=== PATIENT | female | born 1990 | race Two or more races ===

== ENCOUNTER 2018-04-19 11:03 | Emergency (ER) | payer SELFPAY ==
[~2018-04-19] VITALS: Ht 157.5 cm; Wt 56.1 kg
[2018-04-19] MEDS ORDERED: PROMETHAZINE 25 MG/ML, 1ML ONE (12:25)
[2018-04-19] MEDS ORDERED: FAMOTIDINE 20 MG/2 ML ONE (12:26)
[2018-04-19] MEDS ORDERED: MAALOX/HYOSCYAMINE/LIDOCAINE 45 ML BTL ONE (12:26)
[2018-04-19 12:27] LABS: MEAN CORPUSCULAR HGB CONC 34.6 g/dL (32.4-35.8); MEAN CORPUSCULAR VOLUME 95.3 fL (80-100); MEAN PLATELET VOLUME 7.8 fL (7.4-10.4); PLATELET COUNT 444 x10^3/uL (130-400); RED BLOOD COUNT 4.41 x10^6/uL (3.82-5.3); RED CELL DISTRIBUTION WIDTH 12.3 % (9.6-15.2)
[2018-04-19] MEDS ORDERED: SODIUM CHLORIDE FLUSH 10ML SYR IVF ONE (12:30)
[2018-04-19] MEDS ORDERED: SODIUM CHLORIDE 0.9% 1,000ML IVBOLUS ONE (12:30)
[2018-04-19] MEDS ORDERED: PROMETHAZINE 25 MG/ML, 1ML IM ONE (12:30)
[2018-04-19] MEDS ORDERED: MAALOX/HYOSCYAMINE/LIDOCAINE 45 ML BTL PO ONE (12:30)
[2018-04-19] MEDS ORDERED: FAMOTIDINE 20 MG/2 ML IVP ONE (12:30)
[2018-04-19 12:38] LABS: ALANINE AMINOTRANSFERASE 24 U/L (12-78); ALBUMIN 4.1 g/dL (3.4-5.0); ANION GAP 13 mmol/L (5-15); CALCIUM 9.2 mg/dL (8.5-10.1); CHLORIDE 109 mmol/L (98-107); CREATININE 0.89 mg/dL (0.55-1.02)
[2018-04-19 12:43] LABS: ALKALINE PHOSPHATASE 44 U/L (45-117); BILIRUBIN,TOTAL 1.2 mg/dL (0.2-1.0); TOTAL PROTEIN 8.2 g/dL (6.4-8.2)
[2018-04-19 12:50] LABS: MD SCAN
[2018-04-19 12:51] LABS: BASOPHILS # (AUTO) 0.02 x10^3/uL (0-0.1); BASOPHILS % (AUTO) 0 % (0-1); EOSINOPHILS % (AUTO) 0 % (1-7); LYMPHOCYTES # (AUTO) 0.55 x10^3/uL (1-3.4); LYMPHOCYTES % (AUTO) 3 % (22-44); MONOCYTES % (AUTO) 1 % (2-9); NEUTROPHILS # (AUTO) 20.23 x10^3/uL (1.8-6.8); NEUTROPHILS % (AUTO) 96 % (42-75)
[2018-04-19] MEDS ORDERED: MORPHINE SULFATE 4 MG/ML, 1ML ONE (13:18)
[2018-04-19] MEDS ORDERED: MORPHINE SULFATE 4 MG/ML, 1ML IVPush PRN (13:30)
[2018-04-19] MEDS ORDERED: OMNIPAQUE 350 MG/ML, 100ML BOTTLE ONE (14:19)
[2018-04-19 15:01] VITALS: BP 103/85
== END 2018-04-19 15:06 | disposition home or self-care (01) ==
LOC: ED 14:11
DX: N83.201 Unspecified ovarian cyst, right side (principal); D72.829 Elevated white blood cell count, unspecified; R11.2 Nausea with vomiting, unspecified; R19.7 Diarrhea, unspecified; Z79.899 Other long term (current) drug therapy
CPT/HCPCS: 36415; 74177; 76700; 80053; 80307; 83690; 84703; 85025; 96361; 96372; 96374; 96375; 99285; J2550; J7030; Q9967; S0028

== ENCOUNTER 2019-02-17 07:07 | Emergency (ER) | payer OTHER ==
[~2019-02-17] VITALS: Ht 160 cm; Wt 61.9 kg
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
[2019-02-17] MEDS ORDERED: DIPH,PERTUSS(ACELL),TET VAC/PF 0.5 ML IM-VACC ONE ×2 (08:00→08:01)
[2019-02-17] MEDS ORDERED: AMOXICILLIN/CLAV 875-125MG TABLET ONE (08:29)
[2019-02-17] MEDS ORDERED: AMOXICILLIN/CLAV 875-125MG TABLET PO ONE (08:30)
[2019-02-17 08:42] VITALS: BP 126/78
[2019-02-17] MEDS ORDERED: BACITRACIN ZINC OINT 500U/GM, 0.9 GM ONE (09:00)
== END 2019-02-17 09:33 | disposition home or self-care (01) ==
LOC: ED 09:19
DX: S60.571A Other superficial bite of hand of right hand, initial encounter (principal); L03.113 Cellulitis of right upper limb; W55.01XA Bitten by cat, initial encounter; Y93.89 Activity, other specified; Y92.099 Unspecified place in other non-institutional residence as the place of occurrence of the external cause; Y99.8 Other external cause status
CPT/HCPCS: 90471; 90715

== ENCOUNTER 2020-09-12 07:25 | Emergency (ER) | payer OTHER ==
[~2020-09-12] VITALS: Ht 160 cm; Wt 60.3 kg
[~2020-09-12 07:25] MED LIST: CITA20TA9 PO
[2020-09-12 07:29] VITALS: BP 124/75
--- NOTE | 2020-09-12 07:41 | NUR ---
Pt brought back from triage with chief complaint of left lbp/flank pain, reports hurts to take a deep breath. Pt denies n/v, cp, recent trauma.
[2020-09-12] MEDS ORDERED: KETOROLAC 30 MG/1 ML ONE (07:48)
[2020-09-12] MEDS ORDERED: CYCLOBENZAPRINE 10 MG TABLET ONE (07:49)
--- NOTE | 2020-09-12 07:57 | NUR ---
US at bedside.
[2020-09-12] MEDS ORDERED: CYCLOBENZAPRINE 10 MG TABLET PO ONE (08:00)
[2020-09-12] MEDS ORDERED: KETOROLAC 30 MG/1 ML IM ONE (08:00)
[2020-09-12 08:08] LABS: MICROSCOPIC AUTO
[2020-09-12 08:21] LABS: ALANINE AMINOTRANSFERASE 10 U/L (12-78); ALBUMIN 3.6 g/dL (3.4-5.0); ANION GAP 7 mmol/L (5-15); CALCIUM 8.8 mg/dL (8.5-10.1); CHLORIDE 110 mmol/L (98-107); CREATININE 0.89 mg/dL (0.55-1.02)
[2020-09-12 08:23] LABS: BASOPHILS % (AUTO) 1 % (0-1); EOSINOPHILS % (AUTO) 1 % (1-7); LYMPHOCYTES % (AUTO) 36 % (22-44); MEAN CORPUSCULAR HGB CONC 33.9 g/dL (32.4-35.8); MEAN PLATELET VOLUME 7.4 fL (7.4-10.4); MONOCYTES % (AUTO) 8 % (2-9); NEUTROPHILS % (AUTO) 55 % (42-75); PLATELET COUNT 383 x10^3/uL (130-400); RED BLOOD COUNT 4.02 x10^6/uL (3.82-5.3)
[2020-09-12 08:26] LABS: MD NO
[2020-09-12 08:29] LABS: ALKALINE PHOSPHATASE 47 U/L (45-117); BILIRUBIN,TOTAL 0.2 mg/dL (0.2-1.0); TOTAL PROTEIN 7.3 g/dL (6.4-8.2)
--- NOTE | 2020-09-12 08:46 | NUR ---
Discharge instructions reviewed.
== END 2020-09-12 08:58 | disposition home or self-care (01) ==
LOC: ED 08:10
DX: S39.012A Strain of muscle, fascia and tendon of lower back, initial encounter (principal); R10.9 Unspecified abdominal pain; Z88.2 Allergy status to sulfonamides; X58.XXXA Exposure to other specified factors, initial encounter; Y93.89 Activity, other specified; Y92.89 Other specified places as the place of occurrence of the external cause; Y99.8 Other external cause status
CPT/HCPCS: 36415; 76770; 80053; 81001; 83690; 84703; 85025; 96372; 99284; J1885

== ENCOUNTER 2020-12-27 10:10 | Emergency (ER) | payer OTHER ==
[~2020-12-27] VITALS: Ht 160 cm; Wt 62.5 kg
[2020-12-27 10:15] VITALS: BP 140/82
--- NOTE | 2020-12-27 10:26 | NUR ---
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 Her foot caught and she fell down about 6 stairs injuring her right foot 5 days ago. She has been unable to bear weight and borrowed some crutches from a friend. She has been icing and elevating it at home and the swelling has decreased. Minimal swelling noted. provider at bedside for eval. call light within reach./
--- NOTE | 2020-12-27 11:21 | NUR ---
Patient/Caregiver given discharge instructions and they have confirmed that they understand the instructions. Patient d/c on crutches.
== END 2020-12-27 11:23 | disposition home or self-care (01) ==
LOC: ED 11:16
DX: S93.621A Sprain of tarsometatarsal ligament of right foot, initial encounter (principal); W18.49XA Other slipping, tripping and stumbling without falling, initial encounter; Y93.89 Activity, other specified; Y92.098 Other place in other non-institutional residence as the place of occurrence of the external cause; Y99.8 Other external cause status
CPT/HCPCS: 99283